=== PATIENT | female | born 1995 | race Caucasian/White ===

== ENCOUNTER → 2023-07-07 | Emergency (ER) | payer OTHER ==
[2023-07-07 12:57] LABS: Specific Gravity 1.029 (1.005-1.030); Urine Bacteria None Seen /HPF (<20); Urine Bilirubin NEGATIVE (Negative); Urine Blood Negative (Negative); Urine Clarity Turbid (Clear); Urine Color Yellow (Yellow); Urine Glucose NEGATIVE (Negative); Urine Mucus 3+ /HPF (None Seen); Urine Protein TRACE (Negative); Urine RBC <5 /HPF (None Seen); Urine Urobilinogen Normal (Normal)
[2023-07-07 13:11] LABS: Absolute Lymphocytes (CBC) 1.7 K/uL (0.7-4.9); Hematocrit 41.5 % (36.0-45.0); Lymphocytes % 22.2 % (15.3-44.8); MCV 85.4 fL (80-100); MPV 7.7 fL (7.6-11.3); Platelets 275 thou/uL (152-406); RBC Red Blood Cell Count 4.86 M/uL (3.86-4.86)
[2023-07-07 13:29] LABS: Potassium 3.5 mEq/L (3.5-5.1)
--- NOTE | 2023-07-07 17:13 | RAD REPORT ---
EXAM DESCRIPTION: US - Transvaginal Study Probe - 07/07/2023 2:03 pm CLINICAL HISTORY: lower abdomen cramping COMPARISON: No comparisons TECHNIQUE: Sonographic grayscale and color flow images of the pelvis were obtained. FINDINGS: The uterus is normal in size, shape and echotexture. The myometrium is homogeneous. The ut erus measures 9.1 cm in length. The endometrial stripe measures 3 mm, normal. No evidence of a gestational sac. Both ovaries are normal in size, shape and echotexture. The right ovary measures 3.8 x 2.8 x 2.1 cm. The left ovary measures 3.7 x 1.7 x 3.0 cm. No ovarian or parovarian lesions. No adnexal masses. Normal Doppler blood flow was demonstrated to both ovaries. No significant pelvic ascites. IMPRESSION: No acute abnormality in the pelvis. No suspicious adnexal masses or cysts, or evidence o f pelvic free-fluid.
--- NOTE | 2023-07-07 17:17 | ER ---
Nurse's Notes [facility] Name: Maya Valadez Age: 27 yrs Sex: Female : 1995 Arrival Date: 07/07/2023 Time: 12:16 Bed 10 Private MD: Diagnosis: Encounter for test, result negative;Lower abdominal pain, unspecified Presentation: 07/07 12:20 Chief complaint: Patient states: two weeks late on period, had a tubal 8 years ago, ko1 took 3 tests and they all said positive. Coronavirus screen: At this time, the client does not indicate any symptoms associated with coronavirus-19. Ebola Screen: No symptoms or risks identified at this time. Initial Sepsis Screen: Does the patient meet any 2 criteria? No. Patient's initial sepsis screen is negative. Does the patient have a suspected source of infection? No. Patient's initial sepsis screen is negative. Risk Assessment: Do you want to hurt yourself or someone else? Patient reports no desire to harm self or others. Onset of symptoms is unknown. 12:20 Method Of Arrival: Ambulatory ko1 12:20 Acuity: JEANE 4 ko1 12:50 Acuity: JEANE 3 mb9 Triage Assessment: 12:23 General: Appears in no apparent distress. Behavior is cooperative, appropriate for age, ko1 anxious. Pain: Complains of pain in suprapubic area. 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 - Social history:: Smoking status: Patient reports the use of cigarette tobacco products, denies chronic smoking, but will smoke occasionally, Reported history of juuling and/or vaping. Screenin:29 [facility] ED Fall Risk Assessment (Adult) History of falling in the last 3 months, mb9 including since admission No falls in past 3 months (0 pts) Confusion or Disorientation No (0 pts) Intoxicated or Sedated No (0 pts) Impaired Gait No (0 pts) Mobility Assist Device Used No (0 pt) Altered Elimination No (0 pt) Score/Fall Risk Level 0 - 2 = Low Risk Oriented to surroundings, Maintained a safe environment, Educated pt \T\ family on fall prevention, incl call for assistance when getting out of bed. Abuse screen: Denies threats or abuse. Nutritional screening: No deficits noted. Tuberculosis screening: No symptoms or risk factors identified. Assessment: 13:02 General: Appears in no apparent distress. Behavior is calm, cooperative. Pain: Denies mb9 pain. Neuro: Ferrera Agitation-Sedation Scale (RASS): 0 - Alert and Calm Level of Consciousness is awake, alert, obeys commands, Oriented to person, place, time, situation, Appropriate for age. Cardiovascular: Patient's skin is warm and dry. Respiratory: Airway is patent Respiratory effort is even, unlabored, Respiratory pattern is regular, symmetrical. GI: Reports cramping. : Denies vaginal bleeding. EENT: No signs and/or symptoms were reported regarding the EENT system. Derm: Skin is pink, warm \T\ dry. Musculoskeletal: Range of motion: intact in all extremities. 14:24 Reassessment: No changes from previously documented assessment. Patient and/or family mb9 updated on plan of care and expected duration. Pain level reassessed. Patient is alert, oriented x 3, equal unlabored respirations, skin warm/dry/pink. 15:21 Reassessment: No changes from previously documented assessment. Patient and/or family mb9 updated on plan of care and expected duration. Pain level reassessed. Patient is alert, oriented x 3, equal unlabored respirations, skin warm/dry/pink. 15:45 Reassessment: Attempted to call Ultrasound about pt results. No answer. mb9 17:24 Reassessment: No changes from previously documented assessment. Patient and/or family mb9 updated on plan of care and expected duration. Pain level reassessed. Patient is alert, oriented x 3, equal unlabored respirations, skin warm/dry/pink. Vital Signs: 12:20 BP 123 / 87; Pulse 108; Resp 18; Temp 97.4; Pulse Ox 100% on R/A; ko1 13:03 BP 118 / 86; Pulse 86; Resp 18; Pulse Ox 100% on R/A; mb9 14:41 BP 115 / 81; Pulse 90; Resp 16; Pulse Ox 100% on R/A; mb9 16:34 BP 118 / 88; Pulse 80; Resp 18; Pulse Ox 100% on R/A; mb9 ED Course: 12:17 Patient arrived in ED. rg4 12:23 Triage completed. ko1 12:23 Arm band placed on right wrist. Patient placed in an exam room, on a stretcher, on ko1 pulse oximetry, Patient notified of wait time. 12:26 Donny Colon PA is PHCP. cp 12:26 Donny Zuluaga MD is Attending Physician. cp 12:29 Soraida Thomas, LEONA is Primary Nurse. mb9 12:29 Placed in gown. Bed in low position. Call light in reach. Side rails up X 1. Client mb9 placed on continuous cardiac and pulse oximetry monitoring. NIBP monitoring applied. 12:30 No provider procedures requiring assistance completed. mb9 12:46 Test, Urine Sent. mb9 12:46 Urinalysis W/Microscopic Sent. mb9 12:50 Inserted saline lock: 20 gauge in left antecubital area, using aseptic technique. Blood mb9 collected. 13:02 Abo/rh Typing Sent. mb9 13:02 Basic Metabolic Panel Sent. mb9 13:02 CBC with Diff Sent. mb9 13:02 Quantitative Hcg Sent. mb9 14:05 Transvaginal Study Probe In Process Unspecified. EDMS 17:24 IV discontinued, intact, bleeding controlled, No redness/swelling at site. Pressure mb9 dressing applied. Administered Medications: No medications were administered Medication: 12:30 VIS not applicable for this client. mb9 Outcome: 17:16 Discharge ordered by . cp 17:24 Discharged to home ambulatory, mb9 17:24 Condition: stable 17:24 Discharge instructions given to patient, Instructed on discharge instructions, follow up and referral plans. Demonstrated understanding of instructions, follow-up care, 17:24 Patient left the ED. mb9 Signatures: Dispatcher [employer] EDMS Donny Colon PA PA cp Garcia, Rubi rg4 Lilibeth Minor RN RN ko1 Soraida Thomas, LEONA RN mb9
--- NOTE | 2023-07-07 17:17 | EDPHYS ---
Physician Documentation [facility] Name: Maya Valadez Age: 27 yrs Sex: Female : 1995 Arrival Date: 07/07/2023 Time: 12:16 Bed 10 Private MD: Donny Cobian HPI: 07/07 12:45 This 27 yrs old Female presents to ER via Ambulatory with complaints of Test. cp 12:45 The patient presents with a desire for a test, reports multiple positive home cp tests. concerned due to history of tubal ligation and reports last menstrual period ended 05-26-2023 and that her menses are regular and that she did not have a menstrual cycle in June 2023. 12:45 Associated signs and symptoms: Pertinent positives: intermittent lower abdomen pain, cp Pertinent negatives: constipation, diarrhea, dysuria, fever, vaginal bleeding, vaginal discharge, vomiting. Severity of symptoms: in the emergency department the symptoms are unchanged, despite home interventions. The patient is sexually active, does not use protection during intercourse. The patient's method of control includes tubal ligation. 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 - Social history:: Smoking status: Patient reports the use of cigarette tobacco products, denies chronic smoking, but will smoke occasionally, Reported history of juuling and/or vaping. ROS: 12:50 Constitutional: Negative for body aches, chills, fever, poor PO intake, cp 12:50 Eyes: Negative for injury, pain, redness, and discharge, cp 12:50 ENT: Negative for drainage from ear(s), ear pain, sore throat, difficulty swallowing, difficulty handling secretions, 12:50 Cardiovascular: Negative for chest pain, edema, palpitations, 12:50 Respiratory: Negative for cough, shortness of breath, wheezing, 12:50 Abdomen/GI: Positive for of the right lower quadrant and left lower quadrant, intermittent pain, Negative for vomiting, diarrhea, constipation, anorexia, 12:50 : Positive for menstrual abnormality, Negative for urinary symptoms, pelvic pain, vaginal bleeding, vaginal discharge, 12:50 Neuro: Negative for altered mental status, dizziness, headache, syncope, weakness, 12:50 All other systems are negative, Exam: 12:55 Constitutional: The patient appears in no acute distress, alert, awake, comfortable, cp non-toxic, well developed, well nourished, 12:55 Head/Face: Normocephalic, atraumatic. cp 12:55 Eyes: Periorbital structures: appear normal, Conjunctiva: normal, no exudate, no injection, Sclera: no appreciated abnormality, Lids and lashes: appear normal, bilaterally, 12:55 ENT: External ear(s): are unremarkable, Nose: is normal, Mouth: Lips: moist, Oral mucosa: pink and intact, moist, Posterior pharynx: is normal, airway is patent, no erythema, no exudate, 12:55 Chest/axilla: Inspection: normal, 12:55 Cardiovascular: Rate: tachycardic, Rhythm: regular, 12:55 Respiratory: the patient does not display signs of respiratory distress, Respirations: normal, no use of accessory muscles, no retractions, labored breathing, is not present, Breath sounds: are clear throughout, no decreased breath sounds, no stridor, no wheezing, 12:55 Abdomen/GI: Inspection: abdomen appears normal, Bowel sounds: active, all quadrants, Palpation: soft, in all quadrants, nontender, in all quadrants, 12:55 Back: pain, is absent, ROM is normal, Vital Signs: 12:20 BP 123 / 87; Pulse 108; Resp 18; Temp 97.4; Pulse Ox 100% on R/A; ko1 13:03 BP 118 / 86; Pulse 86; Resp 18; Pulse Ox 100% on R/A; mb9 14:41 BP 115 / 81; Pulse 90; Resp 16; Pulse Ox 100% on R/A; mb9 16:34 BP 118 / 88; Pulse 80; Resp 18; Pulse Ox 100% on R/A; mb9 MDM: 12:26 Patient medically screened. cp 13:00 Differential diagnosis: ectopic , molar preganancy, Neoplasm nonspecific cp abdominal pain, ovarian cyst, pelvic inflammatory disease, urinary tract infection, vaginosis. 17:15 Data reviewed: vital signs, nurses notes, lab test result(s), radiologic studies, cp ultrasound. 17:15 Counseling: I had a detailed discussion with the patient and/or guardian regarding the cp historical points, exam findings, and any diagnostic results supporting the discharge/admit diagnosis, lab results, radiology results, the need for outpatient follow up, a family practitioner, to return to the emergency department if symptoms worsen or persist or if there are any questions or concerns that arise at home. Special discussion: Based on the patient's Hx, exam, and Dx evaluation, there is no indication for emergent surgery or inpatient Tx. It is understood by the patient/guardian that if the Sx's persist or worsen they need to return immediately for re-evaluation. 07/07 12:38 Order name: Urinalysis W/Microscopic; Complete Time: 13:26 cp 07/07 13:26 Interpretation: Normal except: [facility] Turbid; UPROT TRACE; MUCUS 3+. cp 07/07 12:38 Order name: Test, Urine; Complete Time: 13:26 cp 07/07 13:27 Interpretation: Reviewed. 07/07 12:51 Order name: Abo/rh Typing; Complete Time: 13:26 cp 07/07 12:51 Order name: Basic Metabolic Panel; Complete Time: 13:32 cp 07/07 13:32 Interpretation: Normal except: CRE 1.16; GFR 65. cp 07/07 12:51 Order name: CBC with Diff; Complete Time: 13:26 cp 07/07 12:51 Order name: Quantitative Hcg; Complete Time: 13:32 cp 07/07 13:33 Interpretation: Reviewed. cp 07/07 14:05 Order name: Transvaginal Study Probe; Complete Time: 17:17 EDMS 07/07 17:18 Interpretation: Report reviewed. 07/07 12:51 Order name: IV Saline Lock; Complete Time: 13:02 cp 07/07 12:51 Order name: Labs collected and sent; Complete Time: 13:02 cp 07/07 12:51 Order name: NPO; Complete Time: 12:52 cp Administered Medications: No medications were administered Disposition Summary: 07/07/23 17:16 Discharge Ordered Notes: Location: Home cp Problem: new cp Symptoms: have improved cp Condition: Stable cp Diagnosis - Encounter for test, result negative cp - Lower abdominal pain, unspecified cp Followup: cp - With: Private Physician - When: 1 week - Reason: symptoms continue Discharge Instructions: - Discharge Summary Sheet cp - Abdominal Pain, Adult cp Forms: - Medication Reconciliation Form cp - Thank You Letter cp - Antibiotic Education cp - Prescription Opioid Use cp - Patient Portal Instructions cp - Leadership Thank You Letter cp Signatures: Dispatcher [employer] EDMS Donny Colon PA PA cp Lilibeth Minor RN RN ko1 Corrections: (The following items were deleted from the chart) 13:43 13:34 Pelvis Complete+US.RAD.BRZ ordered. EDMS EDMS 14:05 13:43 TRANSVAG OB ordered. EDMS EDMS 07/08 15:21 02/05 12:45 Constitutional: Negative for cp cp
[2023-07-08 03:22] VITALS: BP 118/88; TEMP 97.4; O2SAT 100
== END ==
LOC: ER 12:16
DX: Z32.02 Encounter for pregnancy test, result negative (principal); R10.30 Lower abdominal pain, unspecified
CPT/HCPCS: 36415; 76830; 80048; 81001; 81025; 84702; 85025; 86900; 86901

== ENCOUNTER → 2023-08-25 | Emergency (ER) | payer OTHER ==
[~2023-08-25] MED LIST: KETOROLAC 30 MG/ML INJ ONE
--- OUTSIDE RECORDS SUMMARY | 2023-08-25 13:31 | XMS REPORT | Continuity of Care Document ---
Author Name Unknown Address [address] [place] [address] [facility] Address [address] [place] [address] Care Team Providers Care Licensed Physical Therapist Name Role Phone PCP, PATIENT DOES NOT HAVE A Primary Care Physic malinda Unavailable Koki Redman Attending Clinician + KOKI GAVIN Attending Clinician Unavail able Payers Payer Name Policy Type Policy Number Effective Date Expirati on Date Source [employer] STAR [id number] 2023 00:00:00 Problems Condition Name Condition Details Condition Category Status Onset Date Resolution Date Last Treatment Date Treating Clinician Comments Source Other general counseling and advice for contracept bridgette management Other general counseling and advice for contracept bridgette management Disease Active 08-13 00:00: 00 [facility] History of tubal ligation History of tubal ligation Disease Active 08-13 00:00: 00 [facility] Need for HPV vaccinatio n Need for HPV vaccinatio n Disease Active 08-12 00:00: 00 [facility] Allergies, Adverse Reactions, Alerts Allergy Name Allergy Type Status Severity Reaction(s) Onset Date Inactive Date Treating Clinician Comments Source NO KNOWN ALLERGIE S Drug Class Active [facility] Social History Social Habit Start Date Stop Date Quantity Comments [facility] Tobacco use and exposure 2023-08-13 00:00:00 2023-08-13 00:00:00 Smokeless tobacco non-user [facility] Alcohol intake 2023-08-13 00:00:00 2023-08-13 00:00:00 Current drinker of alcohol (finding) [facility] History of Social function 2023-08-13 00:00:00 2023-08-13 00:00:00 [facility] Alcohol Comment 2023-08-13 00:00:00 2023-08-13 00:00:00 socially [facility] Sex Assigned At 1995 00:00:00 1995 00:00:00 [facility] Smoking Status Start Date Stop Date Source [facility] Immunizations Ordered Immunization Name Filled Immunization Name Date Status Comments Source HPV9 Unknown Completed [facility] HPV9 Unknown Completed [facility] Vital Signs Vital Name Observation Time Observation Value Comments S ource Systolic blood pressure 2023-08-13 19:36:00 124 mm[Hg] [facility] Diastolic blood pressure 2023-08-13 19:36:00 83 mm[Hg] [facility] Heart rate 2023-08-13 19:36:00 83 /min [facility] Body temperature 2023-08-13 19:36:00 37.33 Arely [facility] Respiratory rate 2023-08-13 19:36:00 17 /min [facility] Body height 2023-08-13 19:36:00 160 cm [facility] Body weight 2023-08-13 19:36:00 53.116 kg [facility] BMI 2023-08-13 19:36:00 20.74 kg/m2 [facility] Procedures Procedure Date / Time Performed Performing Clinician Source GC & CHLAMYDIA AMPLIFIED ASSAY 2023-08-13 20:34:00 Koki Gavin [facility] PAP SMEAR-LIQUID BASED-CP 2023-08-13 20:34:00 Koki Gavin [facility] THYROID STIMULATING HORMONE 2023-08-13 20:20:00 Koki Gavin [facility] HIV 1/2 AG-AB WITH REFLEX 2023-08-13 20:20:00 Koki Gavin [facility] SYPHILIS IGG/IGM 2023-08-13 20:20:00 Jaya Gavin [facility] GARDASIL 9 (HPV 9V) VACCINE 2023-08-13 19:57:47 Koki Gavin [facility] Encounters Start Date/Time End Date/Time Encounter Type Admission Type Attending Clinicians Care Facility Care Department Encounter ID Source 2024-02-17 14:15:00 2024-02-17 14:15:00 Outpatient R [facility] [id number] [facility] 2023-09-16 14:15:00 2023-09-16 14:15:00 Outpatient R [facility] [id number] [facility] 2023-08-13 14:30:00 2023-08-13 15:20:49 Office Visit Koki Gavin [facility] [id number] [facility] 2023-08-13 14:30:00 2023-08-13 15:20:49 Outpatient R KOKI GAVIN [facility] [id number] [facility] Results Test Description Test Time Test Comments Results Result Co mments Source [facility]/[id number] 15:45:46* Test Item Value Reference Range Interpretation Comme nts Syphilis IgG/IgM (test code = 09614-2) Non-reactive Non-reactive KAREN (test code = KAREN) Non-reactive - No serologic evidence of T. pallidum infection. Cannot exclude incubating or early syphilis. Submit a second specimen in 2-4 weeks if syphilis is clinically suspected. Equivocal - Further testing to follow. Reactive - Further testing to follow. Lab Interpretation (test code = 84284-0) [facility]-Ab with [id number] 09:04:05* Test Item Value Reference Range Interpretation Comme nts HIV Semi-quantitative (test code = 11105-7) 0.07 Negative KAREN (test code = KAREN) Non-reactive for HIV-1 antigen and HIV-1/HIV-2 antibodies. ?No laboratory evidence of HIV infection. ?Repeat in 2-4 weeks if acute HIV infection is suspected. [facility] with [id number] 09:04:05* Test Item Value Reference Range Interpretation Comme nts HIV Semi-quantitative (test code = 48986-2) 0.07 Negative KAREN (test code = KAREN) Non-reactive for HIV-1 antigen and HIV-1/HIV-2 antibodies. ?No laboratory evidence of HIV infection. ?Repeat in 2-4 weeks if acute HIV infection is suspected. [facility] [id number] 07:51:37 * Test Item Value Reference Range Interpretation Comme nts TSH (test code = 7981636716) 1.32 0.45-4.70 Biotin has been reported to cause a negative bias, interpret results relative to patient's use of biotin. Lab Interpretation (test code = 86294-4) Normal [facility] [id number] 07:51:37 * Test Item Value Reference Range Interpretation Comme nts TSH (test code = 3136167809) 1.32 0.45-4.70 Biotin has been reported to cause a negative bias, interpret results relative to patient's use of biotin. Lab Interpretation (test code = 97710-5) Normal [facility]
--- NOTE | 2023-08-25 14:43 | RAD REPORT ---
EXAM DESCRIPTION: RAD - Knee Left 3 View - 08/25/2023 2:24 pm CLINICAL HISTORY: Left knee pain FINDINGS: No fracture or dislocation is seen. No significant bone or joint abnormality
--- NOTE | 2023-08-25 14:44 | RAD REPORT ---
EXAM DESCRIPTION: USExtremity Venous Uni Ltd08/25/2023 2:19 pm CLINICAL HISTORY: left leg pain COMPARISON: None FINDINGS: Left common femoral, superficial femoral, greater saphenous, popliteal and posterior tibi al veins are compressible and demonstrate augmentation. Doppler demonstrates good flow. Grayscale, color and spectral analysis performed on all vessels IMPRESSION: No evidence of deep venous thrombosis involving the left lower extremity.
--- NOTE | 2023-08-25 14:47 | ER ---
Nurse's Notes [facility] Name: Maya Valadez Age: 27 yrs Sex: Female : 1995 Arrival Date: 08/25/2023 Time: 13:29 Bed 10 Private MD: Diagnosis: Pain in left knee Presentation: 08/24 13:40 Chief complaint: Patient states: "I've had left knee pain for the past 2 weeks. It gets mb9 worse and swollen when I'm standing on it for long periods of time". Coronavirus screen: Vaccine status: Patient reports being unvaccinated. Ebola Screen: No symptoms or risks identified at this time. Initial Sepsis Screen: Does the patient meet any 2 criteria? No. Patient's initial sepsis screen is negative. Does the patient have a suspected source of infection? No. Patient's initial sepsis screen is negative. Risk Assessment: Do you want to hurt yourself or someone else? Patient reports no desire to harm self or others. Onset of symptoms was August 25, 2023. 13:40 Method Of Arrival: Ambulatory mb9 13:40 Acuity: JEANE 4 mb9 Triage Assessment: 13:41 General: Appears in no apparent distress. Behavior is calm, cooperative. Pain: mb9 Complains of pain in left patella. EENT: No signs and/or symptoms were reported regarding the EENT system. Neuro: Ferrera Agitation-Sedation Scale (RASS): 0 - Alert and Calm Level of Consciousness is awake, alert, obeys commands, Oriented to person, place, time, situation, Appropriate for age. Derm: Skin is pink, warm \\T\\ dry. Musculoskeletal: Range of motion: intact in all extremities. 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 - Social history:: Smoking status: Reported history of juuling and/or vaping. Screenin:38 [facility] Fall Risk Assessment (Adult) History of falling in the last 3 months, tl4 including since admission No falls in past 3 months (0 pts) Confusion or Disorientation No (0 pts) Intoxicated or Sedated No (0 pts) Impaired Gait No (0 pts) Mobility Assist Device Used No (0 pt) Altered Elimination No (0 pt) Score/Fall Risk Level 0 - 2 = Low Risk Oriented to surroundings, Maintained a safe environment, Educated pt \\T\\ family on fall prevention, incl call for assistance when getting out of bed, Assessed \\T\\ reinforced patient's understanding of fall precautions, Hourly rounding (assess needs \\T\\ fall precautionary measures) done, Used ambulatory aids as needed (educated on \\T\\ assisted with), Used gait belt as appropriate. Abuse screen: Denies threats or abuse. Denies injuries from another. Nutritional screening: No deficits noted. Tuberculosis screening: No symptoms or risk factors identified. Assessment: 14:37 General: Appears in no apparent distress. Behavior is calm, cooperative. Pain: tl4 Complains of pain in left leg. Neuro: Level of Consciousness is awake, alert, obeys commands, Oriented to person, place, time, situation, Moves all extremities. Gait is steady, Speech is normal, Facial symmetry appears normal. Cardiovascular: Capillary refill < 3 seconds Patient's skin is warm and dry. Respiratory: Airway is patent Respiratory effort is even, unlabored, Respiratory pattern is regular, symmetrical, Breath sounds are clear bilaterally. GI: No deficits noted. No signs and/or symptoms were reported involving the gastrointestinal system. : No deficits noted. No signs and/or symptoms were reported regarding the genitourinary system. EENT: No deficits noted. No signs and/or symptoms were reported regarding the EENT system. Derm: No deficits noted. No signs and/or symptoms reported regarding the dermatologic system. Injury Description: Laceration sustained to face. Vital Signs: 13:40 BP 130 / 94; Pulse 84; Resp 16; Temp 97.5; Pulse Ox 100% ; Weight 53.07 kg; Height 5 mb9 ft. 1 in. ; 14:51 BP 112 / 56; Pulse 88; Resp 16; Pulse Ox 100% on R/A; Pain 0/10; tl4 13:40 Body Mass Index 22.11 (53.07 kg, 154.94 cm) mb9 14:51 Pain Scale: Adult tl4 ED Course: 13:31 Patient arrived in ED. mg5 13:33 Krystina Sanders FNP-C [facility]. kb 13:33 Olivier Tavera DO is Attending Physician. kb 13:40 Arm band placed on. mb9 13:41 Triage completed. mb9 14:21 US Extremity Venous Unilateral Ltd In Process Unspecified. EDMS 14:23 Knee Left 3 View XRAY In Process Unspecified. EDMS 14:37 Alonso Cole, RN is Primary Nurse. tl4 14:39 Patient has correct armband on for positive identification. Bed in low position. Call tl4 light in reach. Side rails up X 1. Provided Education on: ED process. Door closed. Noise minimized. Moved to private room. Warm blanket given. 14:39 No provider procedures requiring assistance completed. Patient did not have IV access tl4 during this emergency room visit. Administered Medications: 15:00 Drug: Ketorolac IM 30 mg IM once Route: IM; Site: right ventrogluteal; tl4 15:15 Follow up: Response: No adverse reaction tl4 Medication: 14:38 VIS not applicable for this client. tl4 Outcome: 14:47 Discharge ordered by MD. kb 15:15 Discharged to home ambulatory, tl4 15:15 Condition: stable 15:15 Discharge instructions given to patient, Instructed on discharge instructions, follow up and referral plans. medication usage, Demonstrated understanding of instructions, follow-up care, medications, Prescriptions given X 1, 15:15 Patient left the ED. tl4 Signatures: Dispatcher [employer] EDFL Krystina Sanders FNP-C FNP-Ckb Breneman, Mary Beth RN RN Ophelia Grant mg5 Alonso Cole, RN RN tl4
--- NOTE | 2023-08-25 14:47 | EDPHYS ---
Physician Documentation [facility] Name: Maya Valadez Age: 27 yrs Sex: Female : 1995 Arrival Date: 08/25/2023 Time: 13:29 Bed 10 Private MD: ED Physician Olivier Tavera HPI: 08/24 13:46 This 27 yrs old Female presents to ER via Ambulatory with complaints of Knee Injury. kb 13:46 Pt is a 27 year old female who presents with left knee pain that started 2 weeks ago. kb States the pain is to posterior knee and radiates down calf at times. Denies injury or trauma. states the pain started while she was working, but does not recall any twisting . 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 - Social history:: Smoking status: Reported history of juuling and/or vaping. ROS: 13:45 Constitutional: As per HPI kb Exam: 13:45 Constitutional: This is a well developed, well nourished patient who is awake, alert, kb and in no acute distress. Head/Face: Normocephalic, atraumatic. ENT: Moist Mucous membranes Cardiovascular: Regular rate Respiratory: Respirations even and unlabored. No increased work of breathing. Talking in full sentences Abdomen/GI: Soft, non-tender. No distention Skin: Warm, dry with normal turgor. Normal color. MS/ Extremity: Pulses equal, no cyanosis. Neurovascular intact. Full, normal range of motion. Neuro: Awake and alert, GCS 15, oriented to person, place, time, and situation. Moves all extremities. Normal gait. Vital Signs: 13:40 BP 130 / 94; Pulse 84; Resp 16; Temp 97.5; Pulse Ox 100% ; Weight 53.07 kg; Height 5 mb9 ft. 1 in. ; 14:51 BP 112 / 56; Pulse 88; Resp 16; Pulse Ox 100% on R/A; Pain 0/10; tl4 13:40 Body Mass Index 22.11 (53.07 kg, 154.94 cm) mb9 14:51 Pain Scale: Adult tl4 MDM: 13:33 Patient medically screened. kb 13:45 Differential diagnosis: fracture, sprain, strain, rojas's cyst, dvt. Data reviewed: kb vital signs, nurses notes. 14:46 Counseling: I had a detailed discussion with the patient and/or guardian regarding the kb historical points, exam findings, and any diagnostic results supporting the discharge/admit diagnosis, radiology results, the need for outpatient follow up, a orthopedic surgeon, to return to the emergency department if symptoms worsen or persist or if there are any questions or concerns that arise at home. 08/24 13:40 Order name: Knee Left 3 View XRAY; Complete Time: 14:46 kb 08/24 13:40 Order name: US Extremity Venous Unilateral Ltd; Complete Time: 14:46 kb Administered Medications: 15:00 Drug: Ketorolac IM 30 mg IM once Route: IM; Site: right ventrogluteal; tl4 15:15 Follow up: Response: No adverse reaction tl4 Disposition: 17:14 I was immediately available on-site in the Emergency Department for consultation in the ms3 care of the patient. Disposition Summary: 08/25/23 14:47 Discharge Ordered Notes: Location: Home kb Condition: Stable kb Diagnosis - Pain in left knee kb Followup: kb - With: Emergency Department - When: As needed - Reason: Worsening of condition Followup: kb - With: Private Physician - When: 2 - 3 days - Reason: Recheck today's complaints, Continuance of care, Re-evaluation by your physician Discharge Instructions: - Discharge Summary Sheet kb - Acute Knee Pain, Adult, [id number] kb Forms: - Work release form kb - Medication Reconciliation Form kb - Thank You Letter kb - Antibiotic Education kb - Prescription Opioid Use kb - Patient Portal Instructions kb - Leadership Thank You Letter kb Prescriptions: - Diclofenac Sodium 75 mg Oral tablet, delayed release (enteric coated) - take 1 tablet ORAL route 2 times per day As needed; 30 tablet; Refills: 0, kb Product Selection Permitted Signatures: Dispatcher [employer] Krystina Ruby FNP-C FNP-Ckb Sims, Marcus, DO DO ms3 Soraida Thomas RN RN mb9 Logdahl, Alonso, RN RN tl4
[2023-08-25 15:45] VITALS: BP 112/56; TEMP 97.5; O2SAT 100
== END ==
LOC: ER 13:29
DX: M25.562 Pain in left knee (principal)
CPT/HCPCS: 93971; 96372; 99284